=== PATIENT | female | born 1960 | race Caucasian/White ===

== ENCOUNTER 2021-04-09 08:30 | Outpatient (CLI) | payer MEDICARE | END 2021-04-09 08:31 | disposition home or self-care (01) | LOC: NM 08:30 | PROVIDERS: ATTEND Psychiatry & Neurology Neurology | DX: R25.1 Tremor, unspecified (principal); G20 Parkinson's disease | CPT/HCPCS: 78803; A9584 ==

== ENCOUNTER 2021-04-09 14:22 | Emergency (ER) | payer MEDICARE ==
[2021-04-09] MEDS ORDERED: HYDROcodone/Acetaminophen 10/325 mg Tablet ONE (15:47)
[2021-04-09] MEDS ORDERED: Bacitracin 1 PK ONE (16:26)
== END 2021-04-09 16:31 | disposition home or self-care (01) ==
LOC: ERS 14:22
DX: S80.02XA Contusion of left knee, initial encounter (principal); S50.12XA Contusion of left forearm, initial encounter; W19.XXXA Unspecified fall, initial encounter; E11.9 Type 2 diabetes mellitus without complications